=== PATIENT | female | born 1990 | race African-American/Black ===

== ENCOUNTER 2018-05-09 22:18 | Emergency (ER) | payer MEDICAID ==
[~2018-05-09] VITALS: Ht 160 cm; Wt 67.1 kg
[2018-05-09 22:22] VITALS: BP 114/65
--- NOTE | 2018-05-09 22:25 | NUR ---
27 Y/O F W/C/O LEFT AXILA PAIN S/T CHRONIC SKIN CONDITION. (HYDRADENITIS SUPPURATIVA.) PT DENIES N/V/D; SKIN IS PINK/WARM/DRY; AAOX4, PERRL, WITH EVEN AND STEADY GAIT; LUNGS CLEAR BL, BREATHING UNLABORED; HR EVEN AND REGULAR, BL PERIPHERAL PULSES PRESENT; BS ACTIVE X4, NO TENDERNESS TO PALPATION, NO HEPATOSPLENOMEGALLY PALPATED, RESONANT TO PERCUSSION; PT DENIES ANY FEVER, CP, SOB, OR COUGH AT THIS TIME; PT STATES 9/10 PAIN AT THIS TIME; VSS; PATIENT POSITIONED FOR COMFORT; HOB ELEVATED; BEDRAILS UP X2; BED DOWN.
--- NOTE | 2018-05-09 22:30 | NUR ---
Mary trivedi in [facility] - 05/10/18 at 0005 by ZULMA PT TAKEN TO BED 10
--- NOTE | 2018-05-09 22:47 | NUR ---
Dr. Juarez evaluating patient at bedside.
[2018-05-09] MEDS ORDERED: LIDOCAINE/EPI 1% 1:100000 20 ML VIAL INJ ONE (23:15)
[2018-05-09 23:53] VITALS: BP 112/64
--- NOTE | 2018-05-09 23:54 | NUR ---
Patient discharged with v/s stable. Written and verbal after care instructions given and explained. Patient alert, oriented and verbalized understanding of instructions. Ambulatory with steady gait. All questions addressed prior to discharge. ID band removed. Patient advised to follow up with PMD. Rx of BACTRIM, NAPROSYN given. Patient educated on indication of medication including possible reaction and side effects. Opportunity to ask questions provided and answered.
== END 2018-05-09 23:54 | disposition home or self-care (01) ==
LOC: MED 22:18
DX: L02.412 Cutaneous abscess of left axilla (principal)
CPT/HCPCS: 10160; 99283; J2001